=== PATIENT | female | born 1955 | race Caucasian/White ===

== ENCOUNTER → 2017-11-27 | Outpatient (CLI) | payer BC ==
[~2017-11-27] MED LIST: Benadryl 50 mg50 MG PO; Epipen0.3 MG/0.3 IM; LISI20 PO; LORA10 PO; PRED20 PO; Pepcid20 MG PO; Prednisone20 MG PO
[2017-11-28 04:20] LABS: Source CERVIX/ENDOCERV
[2017-12-12 12:16] LABS: HPV Genotype 16 Not Detected (NOTDET); HPV Genotype 18 Not Detected (NOTDET); HPV High Risk Other Not Detected (NOTDET); Source Cervix
== END ==
LOC: LAB 10:55
PROVIDERS: Physician Assistant
DX: Z01.419 Encounter for gynecological examination (general) (routine) without abnormal findings (principal)
CPT/HCPCS: 87625; G0145

== ENCOUNTER 2018-12-31 07:24 | Day surgery (SDC) | payer BC ==
[~2018-12-31] VITALS: Ht 172.7 cm; Wt 71.2 kg
[~2018-12-31 07:24] MED LIST changes: +METO100ER PO
== END 2018-12-31 08:55 | disposition home or self-care (01) ==
LOC: ORSCSDS 07:24
PROVIDERS: Surgery
PROC: 0DJD8ZZ Inspection of Lower Intestinal Tract, Via Natural or Artificial Opening Endoscopic (ICD-10-PCS; principal; 2018-12-31 08:30)
DX: Z12.11 Encounter for screening for malignant neoplasm of colon (principal); E16.2 Hypoglycemia, unspecified; I10 Essential (primary) hypertension; Z79.899 Other long term (current) drug therapy
CPT/HCPCS: J2704; J7120

== ENCOUNTER → 2019-01-21 | Outpatient (CLI) | payer BC ==
[2019-01-26 10:06] LABS: METANEPHRINE, UR 27 ug/L (Undefined)
== END | disposition home or self-care (01) ==
LOC: LAB SHORT 12:23 → LAB 12:23
PROVIDERS: Internal Medicine
DX: N18.3 Chronic kidney disease, stage 3 (moderate) (principal)
CPT/HCPCS: 81050; 83835

== ENCOUNTER 2019-05-14 05:57 | Day surgery (SDC) | payer BC ==
[~2019-05-14] VITALS: Ht 172.7 cm; Wt 68.0 kg
[~2019-05-14 05:57] MED LIST changes: +FOLGARD TABLET1 EACH PO; +[UNRECOGNIZED DRUG - OTHER] PO
[2019-05-14] MEDS ORDERED: Aspir 8181 MG PO (06:16)
--- NOTE | 2019-05-14 09:24 | NUR ---
PT SITTING UP WITH DRINKING COFFEE. PT DENIES ANY PAIN. RIGHT RADIAL SITE WITH TR BAND AND WRIST BOARD SOFT NON-TENDER WITH NO HEMATOMA AND NO PULSATILE BLEEDING. CALL LIGHT IN REACH.
--- NOTE | 2019-05-14 10:11 | NUR ---
12 CC OF AIR REMOVED OUT OF NOW DEFLATED RIGHT TR BAND OVER 15 MIN. NO HEMATOMA AND NO PULSATILE BLEEDING.
--- NOTE | 2019-05-14 10:13 | NUR ---
DISCHARGE INSTRUCTIONS REVIEWED ALL QUESTIONS ANSWERED.
--- NOTE | 2019-05-14 10:28 | NUR ---
NO CHANGES TO RIGHT DEFLATED TR BAND. PT AMBULATED TO BR TO VOID.
--- NOTE | 2019-05-14 10:57 | NUR ---
RIGHT TR BAND REMOVED AND POLYMEM PLACE OVER RIGHT RADIAL SITE; NO HEMATOMA, NO PULSATILE BLEEDING. RIGHT WRIST BOARD IN PLACE. 20 G IV DISCONTINUED FROM LEFT FOREARM WITH INTACT CANNULA. PT ESCORTED OUT VIA WHEELCHAIR ESCORT.
== END 2019-05-14 11:23 | disposition home or self-care (01) ==
LOC: MHTC 05:57
DX: R07.9 Chest pain, unspecified (principal); R94.39 Abnormal result of other cardiovascular function study; I77.1 Stricture of artery; L71.9 Rosacea, unspecified; M47.812 Spondylosis without myelopathy or radiculopathy, cervical region; I10 Essential (primary) hypertension; E78.5 Hyperlipidemia, unspecified; R92.0 Mammographic microcalcification found on diagnostic imaging of breast; Z82.49 Family history of ischemic heart disease and other diseases of the circulatory system; Z88.8 Allergy status to other drugs, medicaments and biological substances; Z79.899 Other long term (current) drug therapy
CPT/HCPCS: 93454; 99152; 99153; C1769; C1894; J1644; J2250; J3010; J7030; Q9967

== ENCOUNTER → 2022-08-01 | Outpatient (CLI) | payer BC, MEDICARE ==
[~2022-08-01] MED LIST changes: +Aspir 8181 MG PO
[2022-08-01 16:47] LABS: Source, Urine Clean Catch
[2022-08-01 17:23] LABS: Appearance, Urine Clear (Clear); Bilirubin, Urine Neg (Neg); Blood, Urine 1+ (Neg); Glucose Qualitative, Urine Neg (Neg); Ketones, Urine Neg (Neg); Leukocyte Esterase, Urine Neg (Neg); Nitrite, Urine Neg (Neg); Protein, Urine Neg (Neg); Specific Gravity, Urine 1.005 (1.003-1.022); Urobilinogen, Urine NORM (Normal)
[2022-08-01 17:36] LABS: Color, Urine Pale Yellow (P-Yellow)
[2022-08-01 17:37] LABS: Bacteria Rare /hpf; Red Blood Cells, Urine 0-2 /hpf (0-2); Squamous Epithelial Cells Rare /hpf (Few); White Blood Cells, Urine 0-2 /hpf (0-5)
[2022-08-01 17:49] LABS: Protein, Urine Random <5.0 mg/dL (0.0-11.9); Protein/Creat Ratio, Ur Random Unable to Calculate
== END | disposition home or self-care (01) ==
LOC: LAB SHORT 13:15
PROVIDERS: Internal Medicine Nephrology
DX: N20.0 Calculus of kidney (principal); N18.2 Chronic kidney disease, stage 2 (mild)
CPT/HCPCS: 81001; 82570; 84156